=== PATIENT | male | born 1975 | race Caucasian/White ===

== ENCOUNTER 2017-01-18 08:37 | Emergency (ER) | payer SELFPAY ==
[~2017-01-18] VITALS: Ht 180.3 cm; Wt 65.8 kg
[~2017-01-18 08:37] MED LIST: BACTRIM DS 8001 TA1 PO; CLEOCIN150 MG PO; FLEXERIL10 MG PO; HYDROCODONE BIT1 T11 PO; KEFLEX500 MG PO; NAPROSYN500 MG PO; NKHM; PARAFON FORTE500 MG PO; PREDNICOT20 MG PO; Peridex 473 ML473 ML PO; STERIOD; VICODIN 5/500 505 MG PO; ZOFRAN4 MG PO
== END 2017-01-18 10:19 | disposition home or self-care (01) ==
LOC: ED 08:37
DX: S01.511A Laceration without foreign body of lip, initial encounter (principal); S09.93XA Unspecified injury of face, initial encounter; S00.83XA Contusion of other part of head, initial encounter; F17.200 Nicotine dependence, unspecified, uncomplicated; Y92.89 Other specified places as the place of occurrence of the external cause; Y99.8 Other external cause status; Y93.89 Activity, other specified; X58.XXXA Exposure to other specified factors, initial encounter; Z88.8 Allergy status to other drugs, medicaments and biological substances